=== PATIENT | female | born 1975 | race Caucasian/White ===

== ENCOUNTER 2021-08-02 15:39 | Emergency (ER) | payer OTHER, SELFPAY ==
[~2021-08-02] VITALS: Ht 167.6 cm; Wt 127.0 kg
--- NOTE | 2021-08-02 16:00 | NUR ---
Pt brought by [email or web address], pt presents to ER with bilateral leg pain/redness, afebrile, skin pink and warm, cap refill <3, will cont to monitor.
[2021-08-02 16:22] VITALS: BP_SYST 145
--- NOTE | 2021-08-02 16:30 | NUR ---
Dr Anderson evaluating patient in the ambulance
[2021-08-02] MEDS ORDERED: ceFAZolin SODIUM 1 GM VIAL IM ONE (17:00)
[2021-08-02] MEDS ORDERED: KETOROLAC TROMETHAMINE 60 MG/2 ML VIAL IM ONE (17:00)
--- NOTE | 2021-08-02 17:30 | NUR ---
Pt A&Ox4, VSS, respirations even and unlabored
[2021-08-02] MEDS ORDERED: CEPH-548 PO (18:26)
[2021-08-02] MEDS ORDERED: NAPR-690 PO (18:26)
--- NOTE | 2021-08-02 18:43 | NUR ---
Patient given written and verbal discharge instructions and verbalizes understanding. ER MD discussed with patient the results and treatment provided. Patient in stable condition. ID arm band removed. Rx of keflex and Naproxen given. Patient educated on pain management and to follow up with PMD. Pain Scale 0/10. Opportunity for questions provided and answered. Medication side effect fact sheet provided.
[2021-08-02 20:28] VITALS: BP_SYST 145
== END 2021-08-02 18:43 | disposition home or self-care (01) ==
LOC: SED 15:39
DX: S33.5XXA Sprain of ligaments of lumbar spine, initial encounter (principal); U07.1 COVID-19; L03.115 Cellulitis of right lower limb; L03.116 Cellulitis of left lower limb; Z79.899 Other long term (current) drug therapy; X50.0XXA Overexertion from strenuous movement or load, initial encounter; Y93.89 Activity, other specified; Y92.89 Other specified places as the place of occurrence of the external cause; Y99.8 Other external cause status
CPT/HCPCS: 87426; 96372; 99284; J0690; J1885; 36415